=== PATIENT | male | born 1980 ===

== ENCOUNTER 2020-12-26 08:45 | Emergency (ER) | payer OTHER ==
[~2020-12-26] VITALS: Ht 177.8 cm; Wt 102.1 kg
[2020-12-26] MEDS ORDERED: LIPITOR20 MG PO (09:10)
[2020-12-26] MEDS ORDERED: TOPROL XL50 M1 PO (09:10)
[2020-12-26] MEDS ORDERED: HYDRODIURIL12.5 MG PO (09:11)
[2020-12-26] MEDS ORDERED: LOSARTAN POTASS25 MG PO (09:11)
== END 2020-12-26 16:34 | disposition home or self-care (01) ==
LOC: ER 08:45
DX: K52.9 Noninfective gastroenteritis and colitis, unspecified (principal)